=== PATIENT | female | born 1935 | race Two or more races ===

== ENCOUNTER 2019-03-13 17:09 | Emergency (ER) | payer MEDICAID, OTHER ==
[~2019-03-13] VITALS: Ht 149.9 cm; Wt 61.7 kg
[2019-03-13 19:03] LABS: Hematocrit 31.8 % (36.0-46.0); White Blood Cell 4.5 10^3/uL (4.4-10.8)
[2019-03-13 19:04] LABS: Hemoglobin 10.8 g/dL (12.2-16.2); Mean Corpuscular Hemoglobin 34.7 pg (28.0-32.0); Mean Corpuscular Hgb Conc. 33.9 g/dL (32.0-36.0); Mean Corpuscular Volume 102.1 fL (80.0-100.0); Platelet Count (auto) 143 10^3/uL (140-450); Red Blood Cells 3.11 10^6/uL (4.0-5.20)
[2019-03-13 19:14] LABS: Band Neutrophils % (manual) 0; Basophils % (manual) 0 (0.0-2.0); Blast Cells 0; Metamyelocytes % 0; Myelocytes % 0; Promyelocytes % 0; Reactive Lymphocytes 0
[2019-03-13 19:18] LABS: Albumin 2.7 g/dL (3.4-5.0)
[2019-03-13 19:23] LABS: Bilirubin, Total 1.2 mg/dL (0.2-1.0); Total Protein 6.4 g/dL (6.4-8.2)
[2019-03-13 19:29] LABS: INR 1.27 (0.9-1.15); Partial Thromboplastin Time 37.6 sec (23.64-32.05)
[2019-03-13 19:33] LABS: Potassium 5.6 mmol/L (3.5-5.1)
[2019-03-13 20:52] LABS: Lymphocytes % (manual) 38 (10.0-50.0)
[2019-03-13 20:53] LABS: Eosinophils % (manual) 4 (0-7); Monocytes % (manual) 18 (0-12)
[2019-03-13 22:20] LABS: Urine WBC None Seen /hpf (0 - 5)
[2019-03-13 22:40] LABS: Urine Bacteria NONE SEEN /hpf (None Seen); Urine Blood Negative /uL (Negative); Urine Hyaline Cast FEW /lpf (0 - 2)
[2019-03-14] MEDS ORDERED: SODIUM BICARBONATE 8.4% INJ 50ML SYRINGE IV ONE (01:00)
[2019-03-14] MEDS ORDERED: CALCIUM GLUC 4.65meq/50ml D5AE 50 ML IV ONE (01:00)
[2019-03-14] MEDS ORDERED: FUROSEMIDE 20 MG/2 ML VIAL IV ONE (01:00)
[2019-03-14] MEDS ORDERED: DEXTROSE (50%) 50ML SYRG IV ONE (01:00)
[2019-03-14] MEDS ORDERED: InsuLIN REG 1unit/0.01ml Soln (100units/ml) IV ONE (01:00)
[2019-03-14 03:00] VITALS: BP 103/44
[2019-03-14 03:30] LABS: BUN/Creatinine Ratio 14.6; Calcium 8.2 mg/dL (8.5-10.1); Potassium 4.5 mmol/L (3.5-5.1)
== END 2019-03-14 04:36 | disposition home or self-care (01) ==
LOC: ER 17:14
DX: R60.9 Edema, unspecified (principal); I11.0 Hypertensive heart disease with heart failure; I50.22 Chronic systolic (congestive) heart failure; E87.5 Hyperkalemia; Z88.0 Allergy status to penicillin
CPT/HCPCS: 36415; 71045; 80048; 80053; 81001; 82962; 83880; 84132; 84484; 85007; 85027; 85610; 85730; 93005; 96365; 96375; 99284; J0610; J1815; J1940; J7042